=== PATIENT | male | born 1970 | race Caucasian/White ===

== ENCOUNTER 2016-04-23 09:05 | Emergency (ER) | payer OTHER ==
[2016-04-23 09:14] VITALS: BP 121/72; PULSE 73; TEMP 98.1; BMI 26.4
[2016-04-23] MEDS ORDERED: KETOROLAC TROMETHAMINE 60 MG/2 ML VIAL IM ONE (09:32)
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
[2016-04-23] MEDS ORDERED: KETOROLAC TROMETHAMINE 60 MG/2 ML VIAL ONE (09:33)
== END 2016-04-23 10:08 | disposition home or self-care (01) ==
LOC: MERGE 09:05 → JERFT 09:05
DX: M54.5 Low back pain (principal); X50.0XXA Overexertion from strenuous movement or load, initial encounter; X00.8XXA Other exposure to uncontrolled fire in building or structure, initial encounter; Y93.89 Activity, other specified; Y92.89 Other specified places as the place of occurrence of the external cause; Y99.0 Civilian activity done for income or pay
CPT/HCPCS: 72100-TC; 99281-25

== ENCOUNTER 2016-06-20 10:47 | Emergency (ER) | payer OTHER ==
[2016-06-20 10:52] VITALS: BP 125/83; PULSE 63; TEMP 98; BMI 26.4
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
== END 2016-06-20 12:09 | disposition home or self-care (01) ==
LOC: JERFT 10:47
DX: S61.002A Unspecified open wound of left thumb without damage to nail, initial encounter (principal); W22.8XXA Striking against or struck by other objects, initial encounter; Y93.9 Activity, unspecified; Y92.9 Unspecified place or not applicable; Y99.0 Civilian activity done for income or pay
CPT/HCPCS: 99281-25

== ENCOUNTER → 2016-09-17 | Emergency (ER) | payer OTHER ==
[~2016-09-17] MED LIST: ALBUTEROL SO4 2.5/IPRATROPIUM 0.5 INH SOL 3 ML VIAL.NEB. NEB ONE; IBUPROFEN 400 MG TABLET (FP) PO ONE; IBUPROFEN 600 MG TABLET (FP) PO ONE
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
== END | disposition home or self-care (01) ==
LOC: JER 16:30
PROC: 3E0F7GC Introduction of Other Therapeutic Substance into Respiratory Tract, Via Natural or Artificial Opening (ICD-10-PCS; principal; 2016-09-17)
DX: J70.5 Respiratory conditions due to smoke inhalation (principal); R05 Cough; S49.81XA Other specified injuries of right shoulder and upper arm, initial encounter; X02.1XXA Exposure to smoke in controlled fire in building or structure, initial encounter; Y93.89 Activity, other specified; Y92.099 Unspecified place in other non-institutional residence as the place of occurrence of the external cause; Y99.0 Civilian activity done for income or pay
CPT/HCPCS: 71010-TC; 73030-TC-LT; 99281-25

== ENCOUNTER 2017-11-28 17:57 | Emergency (ER) | payer OTHER ==
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
[2017-11-28 18:25] VITALS: BP 112/68; PULSE 76; TEMP 97.9; BMI 26.4
[2017-11-28] MEDS ORDERED: KETOROLAC TROMETHAMINE 60 MG/2 ML VIAL IM ONE (18:55)
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
[2017-11-28] MEDS ORDERED: KETOROLAC TROMETHAMINE 60 MG/2 ML VIAL ONE (18:56)
== END 2017-11-28 19:33 | disposition home or self-care (01) ==
LOC: JERFT 17:57
PROC: 3E0233Z Introduction of Anti-inflammatory into Muscle, Percutaneous Approach (ICD-10-PCS; principal; 2017-11-28)
DX: S79.812A Other specified injuries of left hip, initial encounter (principal); X00.5XXA Jump from burning building or structure in uncontrolled fire, initial encounter; Y93.89 Activity, other specified; Y92.89 Other specified places as the place of occurrence of the external cause; Y99.0 Civilian activity done for income or pay
CPT/HCPCS: 73523-TC-FY; 73552-TC-LT-FY; 99281-25

== ENCOUNTER 2019-10-08 13:22 | Emergency (ER) | payer OTHER ==
[2019-10-08 13:29] VITALS: BP 127/76; PULSE 77; TEMP 98.8; BMI 26.4
[2019-10-08] MEDS ORDERED: IBUPROFEN 600 MG TABLET (FP) PO ONE ×2 (13:29→13:53)
--- NOTE | 2019-10-08 13:29 | PDOC ---
Rapid Medical Evaluation Time Seen by Provider: 10/08/19 13:24 Medical Evaluation: Allergies Allergy/AdvReac Type Severity Reaction Status Date / Time No Known Allergies Allergy Verified 11/28/17 18:23 10/08/19 13:26 I have performed a brief in-person evaluation of this patient. CC: right knee pain; Pmhx- right meniscus repair PE: lateral infrapatellar tenderness to right knee. No deformity. Orders: xrays, motrin, ice Patient will proceed to ED for further evaluation. Discharge Disposition - Diagnosis Knee pain, right - Referrals - Patient Instructions - Post Discharge Activity
--- NOTE | 2019-10-08 14:03 | PDOC ---
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 Reported increased pain with ambulation to lateral aspect of right knee. Denies numbness and tingling sensation. Patient did not take anything for pain Occurred: reports: this afternoon Past History - Medical History Allergies/Adverse Reactions: Allergies Allergy/AdvReac Type Severity Reaction Status Date / Time No Known Allergies Allergy Verified 10/08/19 13:29 Home Medications: Ambulatory Orders Ibuprofen 800 mg PO Q8H PRN #20 tablet 10/08/19 COPD: No - Psycho-Social/Smoking History Smoking Status: No Smoking History: Never smoked Have you smoked in the past 12 months: No Number of Cigarettes Smoked Daily: 0 Information on smoking cessation initiated: No - Substance Abuse Hx (Audit-C & DAST Scrn) How often the patient has a drink containing alcohol: Never Score: In Men: 4 or > Positive; In Women: 3 or > Positive: 0 Screen Result (Pos requires Nsg. Audit-10AR): Negative In the last yr the pt used illegal drug/Rx for NonMed reason: No Score: Yes response is considered Positive: 0 Screen Result (Positive result requires Nsg. DAST-10): Negative Trauma Specific PMHX - Complaint Specific PMHX Arthritis: No Back Injury: No Neck Injury: No Hx Sacro Iliac Joint Dysfunction: No Review of Systems - Review of Systems Able to Perform ROS?: Yes Is the patient limited Tajik proficient: No Constitutional: No: Chills, Fever, Malaise HEENTM: No: Symptoms Reported, See HPI, Eye Pain, Blurred Vision, Tearing, Recent change in vision, Double Vision, Cataracts, Ear Pain, Ocular Prothesis, Ear Discharge, Nose Pain, Nose Congestion, Tinnitus, Nose Bleeding, Hearing Loss, Throat Pain, Throat Swelling, Mouth Pain, Dental Problems, Difficulty Swallowing, Mouth Swelling, Other Respiratory: No: Symptoms reported, See HPI, Cough, Orthopnea, Shortness of Breath, SOB with Exertion, SOB at Rest, Stridor, Wheezing, Productive cough, Hemoptysis, Other Cardiac (ROS): No: Symptoms Reported, See HPI, Chest Pain, Edema, Irregular Heart Rate, Lightheadedness, Palpitations, Syncope, Chest Tightness, Other ABD/GI: No: Symptoms Reported Musculoskeletal: Yes: Symptoms Reported, See HPI, Joint Pain (Right knee pain) Integumentary: No: Symptoms Reported Neurological: No: Symptoms reported, Numbness, Paresthesia, Tingling All Other Systems: Reviewed and Negative *Physical Exam - Vital Signs Last Vital Signs Temp Pulse Resp BP Pulse Ox 98.8 F 77 18 127/76 99 10/08/19 13:25 10/08/19 13:25 10/08/19 13:25 10/08/19 13:25 10/08/19 13:25 - Physical Exam 10/08/19 14:06 GENERAL: Well developed, well nourished. Awake and alert in mild acute distress. PULMONARY: No evidence of respiratory distress. MUSCULOSKELETAL : mild tenderness over lateral aspect of right knee over infrapatellar region. No tenderness to medial aspect. Negative anterior and posterior drawer test. No joint effusion. No visible deformity SKIN: Warm and dry. Normal capillary refill. No visible swelling, ecchymosis or bruising to right knee NEUROLOGICAL: Alert, awake, appropriate. No motor deficits in the lower extremities. Gait is normal without ataxia. PSYCHIATRIC: Cooperative. Good eye contact. Appropriate mood and affect. 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 Reported increased pain with ambulation to lateral aspect of right knee. Denies numbness and tingling sensation. Patient did not take anything for pain Exam significant for mild tenderness to lateral aspect of right knee and infrapatellar region. No joint effusion or deformity. Negative anterior and posterior drawer test of right knee. No joint laxity. X-ray of right knee shows no acute fracture dislocation or abnormality. Patient pain likely knee sprain. Right knee wrapped with Elias bandage and Motrin given for pain. Patient stable for discharge on Motrin PRN for pain with advised to do cold compresses today and switch to hot compress tomorrow as needed for pain with orthopedics follow-up Discharge - Discharge Information Problems reviewed: Yes Clinical Impression/Diagnosis: Knee pain, right Qualifiers: Chronicity: acute Qualified Code(s): M25.561 - Pain in right knee Right knee sprain Qualifiers: Encounter type: initial encounter Involved ligament of knee: lateral collateral ligament Qualified Code(s): S83.421A - Sprain of lateral collateral ligament of right knee, initial encounter Condition: Stable Disposition: HOME - Admission No - Additional Discharge Information Prescriptions: Ibuprofen 800 mg PO Q8H PRN #20 tablet PRN Reason: pain - Follow up/Referral Referrals: Nikko Warren MD [Staff Physician] - - Patient Discharge Instructions Patient Printed Discharge Instructions: DI for Knee Sprain Additional Instructions: X-ray of your right knee shows no acute fracture or dislocation. Your pain is likely from knee sprain. Take prescribed Motrin as needed for pain. Apply cold compress today and switch to hot compress tomorrow as needed for swelling. No strenuous activity or walking and right knee. Follow-up with referred orthopedics - Post Discharge Activity Work/Back to School Note: Back to Work
== END 2019-10-08 14:09 | disposition home or self-care (01) ==
LOC: JERFT 13:22
DX: M25.561 Pain in right knee (principal); S83.421A Sprain of lateral collateral ligament of right knee, initial encounter
CPT/HCPCS: 73560-TC-RT-FY; 99283-25

== ENCOUNTER 2021-04-29 09:02 | Emergency (ER) | payer OTHER ==
[2021-04-29 09:13] VITALS: BP 119/71; PULSE 69; TEMP 98.1; BMI 22.9
[2021-04-29] MEDS ORDERED: ACETAMINOPHEN 500 MG TABLET (FP) PO ONE (09:35)
[2021-04-29] MEDS ORDERED: KETOROLAC TROMETHAMINE 30 MG/1 ML VIAL IM ONE (10:28)
[2021-04-29] MEDS ORDERED: KETOROLAC TROMETHAMINE 30 MG/1 ML VIAL ONE (10:33)
== END 2021-04-29 11:10 | disposition home or self-care (01) ==
LOC: JERFT 09:02
PROC: 3E0234Z Introduction of Serum, Toxoid and Vaccine into Muscle, Percutaneous Approach (ICD-10-PCS; principal; 2021-04-29)
DX: M54.6 Pain in thoracic spine (principal); S20.211A Contusion of right front wall of thorax, initial encounter; W00.0XXA Fall on same level due to ice and snow, initial encounter
CPT/HCPCS: 71101-TC-RT-FY; 99284-25

== ENCOUNTER 2021-08-11 11:39 | Day surgery (SDC) | payer BC ==
[2021-08-09 17:48] VITALS: BMI 26.2
[2021-08-11] MEDS ORDERED: PROPOFOL 20 ML ONE ×2 (12:11)
[2021-08-11 13:48] VITALS: BP 122/70; PULSE 66; TEMP 97.1
== END 2021-08-11 13:40 | disposition home or self-care (01) ==
LOC: FASU-ENDO 11:39
PROVIDERS: ATTEND Internal Medicine Gastroenterology
PROC: 0DBN8ZX Excision of Sigmoid Colon, Via Natural or Artificial Opening Endoscopic, Diagnostic (ICD-10-PCS; 2021-08-11)
PROC: 0DBH8ZX Excision of Cecum, Via Natural or Artificial Opening Endoscopic, Diagnostic (ICD-10-PCS; principal; 2021-08-11 12:44)
DX: Z86.010 Personal history of colon polyps (principal); D12.1 Benign neoplasm of appendix; D12.5 Benign neoplasm of sigmoid colon; K64.2 Third degree hemorrhoids
CPT/HCPCS: 88305-TC

== ENCOUNTER 2022-04-23 12:29 | Emergency (ER) | payer OTHER ==
[2022-04-23 12:37] VITALS: BP 125/83; PULSE 80; RESP 17; TEMP 97.9; BMI 26.9
[2022-04-23] MEDS ORDERED: IBUPROFEN 600 MG TABLET (FP) PO ONE ×2 (12:47→12:50)
== END 2022-04-23 13:28 | disposition home or self-care (01) ==
LOC: JER 12:29 → JERFT 12:29
DX: M25.551 Pain in right hip (principal)
CPT/HCPCS: 73502-TC-RT-FY; 99283-25

== ENCOUNTER 2024-10-24 03:29 | Emergency (ER) | payer OTHER, BC ==
[2024-10-24 03:39] VITALS: BP 135/90; PULSE 79; RESP 18; TEMP 98.6; BMI 27.2
[2024-10-24] MEDS ORDERED: ACETAMINOPHEN 325 MG TABLET (FP) ONE (04:17)
[2024-10-24] MEDS ORDERED: LIDOCAINE 5% TOPICAL PATCH ONE (04:17)
[2024-10-24] MEDS ORDERED: KETOROLAC TROMETHAMINE 15 MG/ML VIAL ONE (04:18)
[2024-10-24 04:44] LABS: MCHC 33.2 g/dl (32.3-36.5); MEAN CELL VOLUME 89.4 fl (79.0-92.2); MEAN PLT VOLUME 9.4 fl (9.4-12.4); RDW 12.2 % (12.2-16.1)
[2024-10-24 04:48] LABS: BG HCT 42.0 % (35.4-49); VENOUS BASE EXCESS -1.2 mmol/L (-2-2); VENOUS O2 SATURATION 65.1 % (70-80); VENOUS PCO2 45.2 mmHg (38-52); VENOUS PH 7.354 (7.310-7.410)
[2024-10-24 05:03] LABS: CO2 27.0 mmol/L (21-32); GLUCOSE,RANDOM 101.0 mg/dL (74-106)
[2024-10-24 05:06] LABS: CREATININE 1.0 mg/dL (0.55-1.3); SGOT/AST 31.0 U/L (15-37); SGPT/ALT 34.0 U/L (13-61)
[2024-10-24 05:07] LABS: TOT PROT 7.6 g/dl (6.4-8.2)
[2024-10-24 05:09] LABS: ALK PHOS 77.0 U/L (45-117)
[2024-10-24] MEDS: LIDOCAINE 5% TOPICAL PATCH TP ONE (05:20)
[2024-10-24] MEDS: KETOROLAC TROMETHAMINE 15 MG/ML VIAL IVPUSH ONE (05:20)
[2024-10-24] MEDS: ACETAMINOPHEN 325 MG TABLET (FP) PO ONE (05:21)
[2024-10-24 05:53] LABS: HCV DIAGNOSTIC IN-HOUSE W/RFLX NON-REACTIVE (NONREACTIVE); HIV INTERPRETATION NEGATIVE (NEGATIVE)
[2024-10-24] MEDS ORDERED: LIDOCAINE PATCH REMOVAL MC SCH (22:00)
== END 2024-10-24 06:24 | disposition home or self-care (01) ==
LOC: JER 03:29
PROC: 3E0333Z Introduction of Anti-inflammatory into Peripheral Vein, Percutaneous Approach (ICD-10-PCS; principal; 2024-10-24)
DX: M54.6 Pain in thoracic spine (principal); M54.50 Low back pain, unspecified; R06.02 Shortness of breath; W10.8XXA Fall (on) (from) other stairs and steps, initial encounter; Y99.0 Civilian activity done for income or pay
CPT/HCPCS: 36415; 72128-TC; 72131-TC; 80053; 82375; 82803; 85027; 86803; 87389; 99285-25